=== PATIENT | female | born 1990 | race American Indian/Alaskan Native ===

== ENCOUNTER 2016-08-08 08:44 | Emergency (ER) | payer MEDICAID ==
[2016-08-08 09:19] VITALS: BP 139/99
--- NOTE | 2016-08-08 09:21 | Emergency Department Report ---
ED ENT HPI - General Chief complaint: Dental/Oral Stated complaint: TOOTHACHE AND EARACHE Time Seen by Provider: 08/08/16 09:17 Source: patient Mode of arrival: Ambulatory Limitations: No Limitations - History of Present Illness Initial comments: PT states she has a cracked tooth on the bottom right. PT states it has been hurting her since 0500. Now pt has pain in her R ear. PT denies recent dental work. STates her last dental appointment was last year. complaint: tooth pain, ear pain -: Gradual, hour(s) Location: R ear, tooth # (29) 1 - pain Severity: severe Severity scale (0 -10): 9 Consistency: constant Improves with: none (no allevation attemps made ) Worsens with: eating Context- Dental: poor dental care Associated Symptoms: denies: fever, pain with swallowing, sore throat - Related Data Previous Rx's Medication Instructions Recorded Last Taken Type Acetaminophen/Codeine [Tylenol #3] 1 tab PO Q6H PRN #12 tab 08/08/16 Unknown Rx Amoxicillin 500 mg PO BID #20 capsule 08/08/16 Unknown Rx Ibuprofen [Motrin] 600 mg PO Q8H PRN #20 tablet 08/08/16 Unknown Rx Allergies Allergy/AdvReac Type Severity Reaction Status Date / Time No Known Allergies Allergy Unverified 10/10/14 15:47 ED Dental HPI - General Stated complaint: TOOTHACHE AND EARACHE Time Seen by Provider: 08/08/16 09:17 - Related Data Previous Rx's Medication Instructions Recorded Last Taken Type Acetaminophen/Codeine [Tylenol #3] 1 tab PO Q6H PRN #12 tab 08/08/16 Unknown Rx Amoxicillin 500 mg PO BID #20 capsule 08/08/16 Unknown Rx Ibuprofen [Motrin] 600 mg PO Q8H PRN #20 tablet 08/08/16 Unknown Rx Allergies Allergy/AdvReac Type Severity Reaction Status Date / Time No Known Allergies Allergy Unverified 10/10/14 15:47 ED Review of Systems ROS: Stated complaint: TOOTHACHE AND EARACHE Other details as noted in HPI Comment: All other systems reviewed and negative Constitutional: denies: chills, fever ENT: as per HPI Gastrointestinal: denies: abdominal pain, nausea, vomiting Genitourinary: denies: abnormal menses ED Past Medical Hx - Past Medical History Previous Medical History?: No - Social History Smoking Status: Current Every Day Smoker Substance Use Type: Alcohol - Medications Home Medications: Home Medications Medication Instructions Recorded Confirmed Last Taken Type Acetaminophen/Codeine [Tylenol #3] 1 tab PO Q6H PRN #12 tab 08/08/16 Unknown Rx Amoxicillin 500 mg PO BID #20 capsule 08/08/16 Unknown Rx Ibuprofen [Motrin] 600 mg PO Q8H PRN #20 tablet 08/08/16 Unknown Rx ED Physical Exam - General Limitations: No Limitations General appearance: alert, in no apparent distress - Head Head exam: Present: atraumatic, normocephalic, normal inspection - Eye Eye exam: Present: normal appearance, PERRL, EOMI. Absent: conjunctival injection - ENT ENT exam: Present: normal orophraynx, mucous membranes moist, TM's normal bilaterally, normal external ear exam - Expanded ENT Exam Expanded Ear exam: Present: normal external inspection Mouth exam: Present: normal external inspection. Absent: drooling, trismus Teeth exam: Present: dental caries, dental tenderness #, other (no palpable abscess ). Absent: gingival enlargement 1 - Dental Tenderness (teeth 29-32 with dental decay) Throat exam: Positive: normal inspection. Negative: tonsillar erythema, tonsillomegaly, tonsillar exudate - Neck Neck exam: Present: normal inspection, full ROM. Absent: tenderness, lymphadenopathy - Respiratory Respiratory exam: Present: normal lung sounds bilaterally. Absent: respiratory distress - Cardiovascular Cardiovascular Exam: Present: regular rate, normal rhythm - Extremities Exam Extremities exam: Present: normal inspection, full ROM - Back Exam Back exam: Present: normal inspection, full ROM. Absent: tenderness - Neurological Exam Neurological exam: Present: alert, oriented X3 - Psychiatric Psychiatric exam: Present: normal affect, normal mood - Skin Skin exam: Present: warm, dry, intact ED Course Vital Signs 08/08/16 09:17 Temperature 98.5 F Pulse Rate 64 Respiratory 18 Rate Blood Pressure 139/99 O2 Sat by Pulse 100 Oximetry - Reevaluation(s) Reevaluation #1: 08/08/16 09:23 PT aware of dx and plan of care. PT aware she will need to follow up with Dentist. PT has no questions at this time. Reevaluation #2: 08/08/16 09:34 PT encouraged to refrain from smoking - Pulse Oximetry Interpretation Digit-Finger Initial Pulse Oximetry Readin Actions Taken: none ED Medical Decision Making - Differential Diagnosis toothache, dental abscess, om Critical care attestation.: If time is entered above; I have spent that time in minutes in the direct care of this critically ill patient, excluding procedure time. ED Disposition Clinical Impression: Otalgia, right ear, Dental decay, Toothache Disposition: TO HOME OR SELFCARE Is pt being admited?: No Does the pt Need Aspirin: No Condition: Stable Instructions: Dental Abscess (ED), Dental Caries (ED), Toothache (ED) Additional Instructions: No driving or ETOH after taking Tylenol #3 Follow up with Dentist in 2-3 days Follow up with PCP in 3-5 days for bp recheck Prescriptions: Acetaminophen/Codeine [Tylenol #3] 1 tab PO Q6H PRN #12 tab PRN Reason: Pain , Severe (7-10) Amoxicillin 500 mg PO BID #20 capsule Ibuprofen [Motrin] 600 mg PO Q8H PRN #20 tablet PRN Reason: Pain Referrals: CRISTOPHER HI MD [Staff Physician] - 3-5 Days [facility] [Outside] - 3-5 Days [facility] [place] [Outside] - 3-5 Days [facility] [Outside] - 3-5 Days Forms: Work/School Release Form(ED) Time of Disposition: 09:26
== END 2016-08-08 09:46 | disposition home or self-care (01) ==
LOC: ED 08:44
DX: K02.9 Dental caries, unspecified (principal); H92.01 Otalgia, right ear; F17.200 Nicotine dependence, unspecified, uncomplicated
CPT/HCPCS: 99282